=== PATIENT | male | born 1940 | race Caucasian/White ===

== ENCOUNTER 2016-12-22 13:49 | Inpatient (IN) | payer MEDICARE, BC ==
--- NOTE | ~2016-12-22 | CN ---
Consultation Report [facility] [address] [place]. [address] NAME: CHESTER ORDONEZ : 38 STATUS : ADM Violet PAT#: [id number] AGE: 76 ADM/REG DATE : 12/22/16 MR#: [id number] REPORT SERV DATE: 12/23/16 DICTATED BY: JESE MASSEY DATE: 12/22/16 REPORT STATUS : Draft TRANSCRIBED BY: DONNA DATE: 12/22/16 DATE OF CONSULTATION: REFERRING REASON: Chest pain and atrial fibrillation. HISTORY OF PRESENT ILLNESS: This is a pleasant 76-year-old white obese gentleman, well known to Dr. Luis Hernandez from [facility] with a history of paroxysmal atrial fibrillation, who is on chronic anticoagulation with Coumadin. He does not have a known coronary artery disease. Reportedly, he had a negative cardiac stress test 2 years ago. He had some chest pain and abdominal discomfort several years ago when he had a cholecystectomy, but no documented coronary artery disease. He is an ex-smoker with a personal history of diabetes, hypertension, and hyperlipidemia. He has, over the last several months, on and off episodes of falls and poor balance. While driving to [place] visiting his daughter, he developed acute dizziness but no headache. When he reached her house, he had episodes of chest pain and vomited 3 times. He developed a left arm pain which has been an on and of squeezing- type sensation in the left arm and also substernal epigastric pain. He also has some belching and a distended abdomen. He had a few episodes of lower extremity edema over the last couple of weeks ago and at the end of the day also. He has not had any similar chest pain over the last several years. His first cardiac enzymes are negative. He remains in rate-controlled atrial fibrillation. He is currently chest pain-free. He denies any headache or mental status changes. CT of the brain revealed some chronic small-vessel changes. He remains hemodynamically stable. Currently chest pain-free. REVIEW OF SYSTEMS: The rest of the review of systems is negative. PAST MEDICAL HISTORY: 1. Paroxysmal atrial fibrillation. 2. Chronic anticoagulation with Coumadin. 3. Hypertension. 4. Hyperlipidemia. 5. Diabetes mellitus. 6. Remote history of smoking. 7. Obesity. 8. Reported history of negative cardiac stress test 2 years ago. 9. History of preserved systolic function with EF of 55% in 2015. 10.Poor balance with history of falls. ALLERGIES: NO KNOWN DRUG ALLERGIES. SOCIAL HISTORY: The patient lives independently. He walks with a cane, occasionally will use a walker. He has poor balance. He quit smoking several years ago, smoked on and off entire life. Denies drinking alcohol or using street drugs. FAMILY HISTORY: Negative for sudden cardiac deaths or premature coronary artery in the Consultation Report [address] [place]. [address] NAME: CHESTER ORDONEZ : 38 STATUS : ADM Violet PAT#: [id number] AGE: 76 ADM/REG DATE : 12/22/16 MR#: [id number] REPORT SERV DATE: 12/23/16 DICTATED BY: JESE MASSEY DATE: 12/22/16 REPORT STATUS : Draft TRANSCRIBED BY: DONNA DATE: 12/22/16 family. HOME MEDICATIONS: Coreg 3.125 mg twice a day, Lasix 20 mg once a day, Neurontin 300 mg twice a day, hydrochlorothiazide 25 mg once a day, insulin, Cozaar 50 mg once a day, Flomax 0.4 mg once a day, and Coumadin 3.5 mg at bedtime. PHYSICAL EXAMINATION: GEN - No acute distress. Appears stated age. VITAL SIGNS: Blood pressure 142/62 and heart rate 62, irregularly irregular. HEENT - Pupils reactive to light and accommodation. Moist mucosa membrane. NECK: No JVD. Normal carotid upstroke. No carotid bruits. LUNGS: Decreased breath sounds, but no crackles. COR: Normal S1, S2. No S3 or S4. No significant rub or murmurs. ABD: Morbidly obese, distended. There is mild palpation tenderness in the epigastric area. EXT: Trace edema around the ankles with decreased pedal pulses bilaterally. SKIN: Warm with normal turgor. MS - No kyphosis. NEURO/PSY - Alert and oriented. Nonfocal. LABORATORY DATA: CBC within normal limits. INR 2.2, creatinine 1.8, BUN 33, and troponin x1 is negative. Chest x-ray, no acute pathology. CT of the chest as above. Electrocardiogram revealed atrial fibrillation at 53 beats per minute, no acute ST-T changes. ASSESSMENT AND PLAN: 1. Paroxysmal atrial fibrillation, currently atrial fibrillation which is rate controlled and asymptomatic on therapeutic anticoagulation. 2. Episodes of resting chest pain and left arm pain of unclear etiology. 3. Nausea and vomiting of unclear etiology. 4. Dizzy sensation of unclear etiology. The patient will have orthostatic blood pressure checked. At the present time, there is nothing suggesting acute coronary syndrome. He will closely follow cardiac enzymes. He will hold the Coreg and proceed with nuclear cardiac stress test in case that remains negative. Likely, he will require a neurology workup also. He remains hemodynamically stable now. He will have orthostatic blood pressure checked. We will also plan an echocardiogram to exclude any regional wall motion abnormalities tomorrow. The plan has been discussed with the patient and several family members. Consultation Report [address] [place]. [address] NAME: CHESTER ORODNEZ : 38 STATUS : ADM Violet PAT#: [id number] AGE: 76 ADM/REG DATE : 12/22/16 MR#: [id number] REPORT SERV DATE: 12/23/16 DICTATED BY: JESE MASSEY DATE: 12/22/16 REPORT STATUS : Draft TRANSCRIBED BY: DONNA DATE: 12/22/16 MARTÍN/DONNA Jese Massey M.D. / [id number] CC: Miguel Luna Jr, MD
--- NOTE | ~2016-12-22 | DS ---
Discharge Summary [facility] [address] [place]. [address] NAME: CHESTER ORDONEZ : 38 STATUS : DIS IN PAT#: [id number] AGE: 76 ADM/REG DATE : 12/23/16 MR#: [id number] REPORT SERV DATE: 12/30/16 DICTATED BY: JR. LUNA WILLIAM JOHN DATE: 12/29/16 REPORT STATUS : Draft TRANSCRIBED BY: DONNA DATE: 12/29/16 ADMISSION DATE: 12/23/2016 DISCHARGE DATE: 12/29/2016 DISCHARGE DIAGNOSES: 1. Normal pressure hydrocephalus with dizziness, gait instability, word apraxia, urinary urgency, and status post large volume lumbar puncture. 2. Chronic atrial fibrillation. 3. 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 OPERATIONS/PROCEDURES AND TREATMENTS: Include: 1. CT of the brain done 12/22/2016 which showed mild to moderate atrophy with ventriculomegaly. There was also moderate amount of periventricular deep white matter lucency consistent with distention changes and small vessel ischemic disease of chronic nature. 2. Chest x-ray done 12/22/2016 which showed no acute process. 3. Carotid flow study done 12/23/2016 showed left carotid category 1 stenosis, right vertebral was antegrade, left vertebral was antegrade. 4. MRI of the brain done 12/24/2016 showed moderate atrophy and chronic white matter ischemic change without acute infarct or hemorrhage. There was mild atherosclerotic irregularity of the proximal middle cerebral arteries bilaterally. The patient has extensive atherosclerotic irregularity of the middle cerebral arteries distal to the bifurcation bilaterally. There is focal stenosis at an estimated 70% to 90%. There was mild atherosclerotic change related to distal common carotid and proximal internal carotid arteries bilaterally without flow-limiting stenosis. The left vertebral arteries are patent and dominant. 5. Lumbar puncture done 12/28/2016 showed 28 mL CSF fluid removed with normal opening pressure. 6. Echocardiogram done 12/23/2016 showed normal ventricular systolic function with an ejection fraction of 60% with mild left ventricular hypertrophy. Normal right ventricular chamber size and function without significant regurgitation or stenosis. 7. Stress test done 12/23/2016 which showed no evidence of ischemia with ejection fraction of 60%. HOSPITAL COURSE: The patient is a 76-year-old white male who presented to [facility] on 12/22/2016, after awakening in the morning, drove from [facility] to see his son when he felt weak and dizzy. He was not driving very well. His blood sugar was somewhat elevated at 125. However, he still thought this could have been his blood sugar. He had cereal and milk and his blood sugar actually went up. He then began having chest pain with radiation to the left upper arm, lasting about two minutes. He came to the emergency room and was seen by Dr. Manzano. EKG was unremarkable. Physical exam showed blood pressure 140/90, heart rate 63, and respiratory rate 16. He was afebrile. Exam showed trace edema. Otherwise, unremarkable CT of the brain, detailed above. Cardiac enzymes are negative. EKG showed nonspecific changes. The patient was admitted to the Clinical Decision Unit. He was seen by Dr. Daley of [address] [id number] NAME: CHESTER ORDONEZ : 38 STATUS : DIS IN PAT#: [id number] AGE: 76 ADM/REG DATE : 12/23/16 MR#: [id number] REPORT SERV DATE: 12/30/16 DICTATED BY: JR. LUNA WILLIAM JOHN DATE: 12/29/16 REPORT STATUS : Draft TRANSCRIBED BY: DONNA DATE: 12/29/16 Cardiology, who recommended echocardiogram and stress test which are detailed above. The patient continued to complain of dizziness and weakness, was seen by Neurology. Given the patient's gait instability, word apraxia, and urinary voiding symptoms, he felt the patient could have normal-pressure hydrocephalus. He did have demonstration ventriculomegaly on imaging. He was therefore planned for large volume lumbar puncture. Unfortunately, the patient was on Coumadin, therefore, washout period was required. He finally had a lumbar puncture on 12/28/2016 and will be discharged home today on 12/29/2016 with Lovenox until INR is greater than 2. The remainder of the patient's health problems were unremarkable and not addressed. For discharge exam and laboratory, please see daily progress note. DISCHARGE DIET: ADA, 1.5 L fluid restriction. He is to weigh himself daily. ACTIVITY: As tolerated. FOLLOWUP: Followup will be on Wednesday or with his primary care provider, Nadege Dorantes, with an INR. The patient's Lovenox should be discontinued when INR is greater than , AND Dr. Javier Montero. FOLLOWUP ISSUES: 1. Follow up on normal pressure hydrocephalus. 2. Follow up INR on Wednesday or . Discontinuing Lovenox when INR is greater than 2. This discharge took 35 minutes for patient encounter, coordination of care, and documentation. WJF/MODL Miguel Luna Jr, MD / [id number] CC: Miguel Luna Jr, MD Chelsea Height Paul Boerema, MD
--- NOTE | ~2016-12-22 | CN ---
Consultation Report [facility] [address] [place]. [address] NAME: CHESTER ORDONEZ : 38 STATUS : ADM IN PAT#: [id number] AGE: 76 ADM/REG DATE : 12/23/16 MR#: [id number] REPORT SERV DATE: 12/23/16 DICTATED BY: ANYI JOSEPH DATE: 12/23/16 REPORT STATUS : Draft TRANSCRIBED BY: MODPreston DATE: 12/23/16 NEUROLOGY CONSULTATION DATE OF CONSULTATION: 12/23/2016 REASON FOR CONSULTATION: "Dizziness." HOSPITALIST: Miguel Luna Jr, M.D. ADVERTISING INSERTER: Miguel Hernandez M.D. HISTORY OF PRESENT ILLNESS: The patient is a 76-year-old male who has had an ongoing problem of imbalance. He states that he has had it for approximately six years. He has been to various doctors and has been unable to determine the etiology of his chronic imbalance. This last Wednesday, the patient was out, working in the yard, and he suddenly experienced lower back pain. He decided to go inside and rest a little while. He had no other associated symptoms. On Wednesday, the patient was at the gas station, pumping gas, he suddenly felt "dizzy" and got back in the car. When asked to specifically describe dizzy, he said he felt imbalanced and thought he might pass out. He denied any vertiginous symptoms. After the patient was in the car, he decided that he would drive to [place]. His stated that while he was driving, he kept veering to the left. He decided to drive to his son-in-law's house and once he parked the car, he could not get out of the car very easily nor did he walk in the house even using his cane. He was so imbalanced, it took three to four people to get him inside. Once he was inside, his blood sugar was checked and it was 320 mg/dL and his blood pressure was checked and the systolic reading was 160 to 170. He suddenly felt very nauseated and threw up. Eventually, the patient came to [facility]'s Emergency Department for further evaluation and treatment. When questioned extensively about the patient's "imbalance," the patient mentions that he does have peripheral neuropathy due to his diabetes. He also mentioned that he has short- term memory issues and word-finding problems. Over the last three years, he has had urinary incontinence and has had to wear, depends, 24 hours a day. PAST MEDICAL HISTORY: Incarcerated hernia, diabetes mellitus type 2, atrial fibrillation, BPH, hypertension, history of tobacco abuse, GERD, nephrolithiasis, biliary pancreatitis, chronic kidney disease stage III, hyperlipidemia, obesity, ataxia, and diabetic neuropathy. PAST SURGICAL HISTORY: Hernia repair, cholecystectomy, and appendectomy. HOME MEDICATION: Home medications list includes Coreg 3.125 mg twice a day, vitamin B12 1000 mcg daily, Lasix 20 mg daily, Neurontin 300 mg b.i.d., HCTZ 25 mg daily, Lantus 90 units Consultation Report [address] [place]. [address] NAME: CHESTER ORDONEZ : 38 STATUS : ADM IN PAT#: [id number] AGE: 76 ADM/REG DATE : 12/23/16 MR#: [id number] REPORT SERV DATE: 12/23/16 DICTATED BY: ANYI JOSEPH DATE: 12/23/16 REPORT STATUS : Draft TRANSCRIBED BY: DONNA DATE: 12/23/16 subcu at bedtime, Humalog 25 units subcu a.c., Tradjenta 5 mg daily, Cozaar 50 mg daily, multivitamin daily, Flomax 0.4 mg daily, Ultram 50 mg t.i.d., and Jantoven 3.5 mg daily. ALLERGIES: NONE. SOCIAL HISTORY: The patient is . This is his second marriage. He has two children by his first marriage. He is a remote smoker. He does not drink alcohol or use illicits. FAMILY HISTORY: The patient's mother at the age of 85 from Alzheimer's. His father from an [place]. He also had cancer. He has one brother who from lung cancer and two sisters who have chronic back pain and diabetes. REVIEW OF SYSTEMS: For pertinent positives, see HPI. PHYSICAL EXAMINATION: GENERAL: The patient is a 76-year-old male, who stands 5 feet 9 inches tall and weighs 238 pounds. VITAL SIGNS: He is afebrile. Heart rate 65, respiratory rate 20, O2 saturations on room air 94%, blood pressure 137/65. NEURO: The patient is alert. He is oriented x4. He is pleasant, communicates appropriately. Speech is clear. Language fluent. He does have slight anomia, but no dysarthria or aphasia. Pupils are 2 mm. PERRLA. Cranial nerves 2 through 12 are intact. Peripheral vision via confrontation is full in both maher. Rstyra-hi-nzom, no ataxia. Xonm-im-xpph, no ataxia. No pronator drift. No asterixis, myoclonus, dysmetria, or tremor. Upper extremity strength is 5/5 bilaterally. Upper DTRs 2+ bilaterally. No reported sensory deficits. Lower extremities strength is 4/5 bilaterally. Lower DTRs 1+ bilaterally. Downgoing toes. The patient has diminished sensation from the toes to the ankle on the right and from toes to mid calf on the left. He can get up and ambulate. His gait is slow, it is magnetic, wide-based, Romberg positive. LABORATORY DATA: CBC on 12/22/2016, is normal. BMP on 12/23/2016, shows a creatinine of 1.52 and blood sugar of 226. INR today is 2.3. Carotid duplex study, category 1 bilaterally. Echocardiogram, LVEF 60% with LVH and no thrombus. CT of the brain, mild atrophy with ventriculomegaly. No acute changes. MRI and MRA of the brain is pending. ASSESSMENT/PLAN: 1. Probable NPH (normal pressure hydrocephalus). The patient has the triad of symptoms which include ataxia, memory loss, and urinary incontinence. The patient will need to have a high volume LP. Currently, he is on Coumadin and his INR is 2.3. I will ask the hospitalist team to manage his anticoagulation and place him on a heparin drip prior to LP. 2. Peripheral neuropathy. The patient has moderate peripheral neuropathy, which could also affect his balance and cause some ataxia. Thank you again for including us in consultation. We will continue to follow with you. Consultation Report [address] [place] [place]. [address] NAME: CHESTER ORDONEZ : 38 STATUS : ADM IN [facility]#: [id number] AGE: 76 ADM/REG DATE : 12/23/16 MR#: [id number] REPORT SERV DATE: 12/23/16 DICTATED BY: ANYI JOSEPH DATE: 12/23/16 REPORT STATUS : Draft TRANSCRIBED BY: DONNA DATE: 12/23/16 GUERRERO/DONNA Anyi Joseph DNP, ACNP-BC / [id number] CC: Miguel Luna Jr, MD Paul Daniel Boerema William Warren, M.D.
--- NOTE | ~2016-12-22 | HP ---
History And Physical [place] [id number] [facility] [place]. [address] NAME: CHESTER ORDONEZ : 36 STATUS : ADM Violet PAT#: [id number] AGE: 76 ADM/REG DATE : 12/22/16 MR#: [id number] REPORT SERV DATE: 12/23/16 DICTATED BY: CHLOE WHITE DATE: 12/22/16 REPORT STATUS : Draft TRANSCRIBED BY: MODL DATE: 12/22/16 DATE OF ADMISSION: 12/22/2016 ATTENDING PHYSICIAN: Dr. Lnua. REASON FOR ADMISSION: Chest pain, left arm pain, and dizziness. EXAMINING PHYSICIAN: Dr. White. HISTORY: This is a 76-year-old white male, who got up this morning and drove from [facility] to [place] to see his son. He felt weak and dizzy this morning. He was not driving too straight as well. His blood sugar in fact on arising this morning was 125. He had cereal and milk and at his son's house. With the problem he is having, his blood sugar had gone up to 310. He also had began having a chest pain in the left upper arm that radiated into the chest. He has a tight feeling lasting 2 minutes at a time. It came and went. He came to the emergency room and was seen by Dr. Shine Lawrence. An EKG was obtained. It did show bradycardia with atrial fibrillation with a slow ventricular response. He has a longstanding history of atrial fibrillation and is followed by Dr. Miguel Hernandez. He has not had a cardiac catheterization or cardiac imaging in the last two years at least. We admitted the patient to observation to rule out SC to stage for cardiac intervention considering cardiac catheterization in the morning. His creatinine is slightly above baseline from 1.6 up to 1.8 today. PAST HISTORY: He was hospitalized with incarcerated hernia in the past. This was 08/15/2014. He was also found to have positive influenza A and pneumonia associated with that which took the bulk of the hospitalization. He has adult-onset diabetes mellitus. He has had some trouble getting it under control although his diet is fairly uncontrolled as well. He has had no cancer. His home medications are as follows: Yet to be fully identified. Review of the old history showed that the patient had been on amiodarone, carvedilol, Levemir, and Lasix in the past. His list of medicines without doses include the following: Losartan HCT 50/50 one p.o. daily; Humalog 25 units before each meal; Lantus 80 units subcu at bedtime; gabapentin 300 mg p.o. three times a day; tramadol 50 mg three times a day; Flomax 0.4 mg once a day; furosemide 20 mg p.o. b.i.d.; carvedilol 1 tablet twice a day, dosage unknown; Jantoven 3 mg p.o. once a day at bedtime; Tradjenta 5 mg once a day; vitamins once a day, B12, D3, and Centrum vitamins once daily. ALLERGIES: NONE ARE KNOWN. SOCIAL HISTORY: He is . Lives with . [place] in [place] farm in [address] [id number] NAME: CHESTER ORDONEZ : 36 STATUS : ADM Violet PAT#: [id number] AGE: 76 ADM/REG DATE : 12/22/16 MR#: [id number] REPORT SERV DATE: 12/23/16 DICTATED BY: CHLOE WHITE DATE: 12/22/16 REPORT STATUS : Draft TRANSCRIBED BY: DONNA DATE: 12/22/16 [place] up near the [facility] off [facility]. He smokes cigarettes for about 40 years but quit in the last decade. He does not take any alcohol. He attends the [employer] [facility] [employer] in [place] there. FAMILY HISTORY: He had a father who of cancer but also had a heart attack due to the cancer that he had and he had a brother who of cancer. There is a brother who had diabetes as well. There is obesity that runs in the family. REVIEW OF SYSTEMS: He had no headache. He did have some blurring of his vision and the dizziness but no fever, chills, night sweats, stiff neck, melena, hematemesis, fits, seizures, convulsions, unilateral weakness. He did have 2 vomiting episodes since he got here associated with the dizziness and the chest pain. He has had no melena, hematemesis, fits, seizures, or convulsions. His says he has been up tight recently about general anxiety. He said he wants to live a long time, but realizes he is in certainly failing health with the obesity and the diabetes as well. This brings on much anxiety. He has much family and friends around him and good support group. He has had some swelling of his lower extremities that is better today because he raised his feet up on a pillow last night he believes. His kidneys are failing some with creatinine rising from the 1.6 range on up to 1.8 which it is today. He is followed by Dr. Tai Hager in his office for chronic kidney disease. He has had 2+ pitting edema recently but none today and in fact it is better today. Remainder of the review of systems is negative. PHYSICAL EXAMINATION: VITAL SIGNS: His blood pressure now down to 140/90 with a heart rate of 63, respiratory rate 16, afebrile. HEENT: EOMI. Sclerae clear. Conjunctivae pink. Pharynx clear. NECK: No bruit without any JVD. CHEST: Clear to A and P. HEART: Irregularly irregular. Rate 63. ABDOMEN: Grossly obese. Protuberant. Nontender. Bowel sounds positive. No HSM. EXTREMITIES: He only has only trace edema around the ankles but the ankles are not prominent. His distal pulses are trace in the dorsalis pedis and posterior tibial. NEUROLOGICAL: He withdraws to plantar stimulation. [place] is symmetric bilaterally. Coordination intact. No tremor. His [id number] is intact. No dysmetria. No nystagmus. Strength is symmetric and equal. Sensory grossly intact. LYMPHATICS: There is little adenopathy. GENERAL: He is obese, affable. Hearing appears to be intact. LABORATORY DATA: CT scan of the brain does show some mild to moderate atrophy with ventriculomegaly. He has moderate amount of periventricular deep white matter disease suggestive of ischemia but no acute stroke or bleed is noted. His chest x-ray shows no acute cardiopulmonary event. His sodium is 135, potassium 4.8, creatinine 1.81 with a BUN of 33, glucose is 274 here. The albumin 3.4. Troponin less than 0.02. The EKG shows atrial fibrillation with a slow ventricular response and left axis deviation with low voltage in lead II and nonspecific ST and TU waves. History And Physical [address] [address] NAME: CHESTER ORDONEZ : 36 STATUS : ADM Violet PAT#: [id number] AGE: 76 ADM/REG DATE : 12/22/16 MR#: [id number] REPORT SERV DATE: 12/23/16 DICTATED BY: CHLOE WHITE DATE: 12/22/16 REPORT STATUS : Draft TRANSCRIBED BY: MODL DATE: 12/22/16 His hemoglobin was 13.8, hematocrit 41.0, MCV is 94, white count 5600, platelets 2000. His INR was 2.0. ASSESSMENT: 1. Acute dizziness now improved. Neurologic exam is not sustained, persistent neurologic deficits. We will hold on the MRI scan for now in favor of cardiac evaluation. 2. Coagulopathy because of atrial fibrillation. 3. Atrial fibrillation. 4. Chest pain, angina equivalent. The patient may never have had a cardiac catheterization, but Dr. Miguel Hernandez follows him. 5. Atrial fibrillation. 6. Bradycardia. 7. Chronic kidney disease stage 3. 8. Diabetes type 2. 9. Morbid obesity with questionable compliance. 10.History of ventral hernia repair on multiple occasions. PLAN: We will put the patient on observation. Draw serial troponins. Repeat the EKG in the morning. We will go ahead and consult Dr. Miguel Hernandez for possible cardiac catheterization as the patient does have a high probability of coronary artery disease. He does have bradycardia. We may need to decrease the dosage of the carvedilol for now because of this and we will check ultrasound of the carotids. LISA/DONNA Chloe White M.D. / [id number] CC: Miguel Luna Jr, MD William Warren, M.D.
[2016-12-22 12:17] LABS: BASOPHILS 0.8 %; BASOPHILS ABSOLUTE 0.05 10/3/uL (0.0-0.16); EOSINOPHILS ABSOLUTE 0.12 10/3/uL (0.0-0.53); ER CBC TAT 0 Hrs 05 Mins; HEMOGLOBIN 13.8 g/dL (13.6-17.8); IMMATURE GRANULOCYTES 0.2 %; IMMATURE GRANULOCYTES ABSOLUTE 0.01 10/3/uL (0.0-0.11); LYMPHOCYTES 35.4 %; MEAN CORPUS HGB CONC 33.7 g/dL (32.0-36.0); MEAN CORPUSCULAR HEMOGLOB 31.7 pg (26.0-34.0); MEAN PLATELET VOLUME 10.9 fL (9.2-13.0); MONOCYTES 12.5 %; MONOCYTES ABSOLUTE 0.74 10/3/uL (0.21-1.20); NEUTROPHILS 49.1 %; NEUTROPHILS ABSOLUTE 2.92 10/3/uL (2.02-8.40); RBC DISTRIBUTION WIDTH 14.2 % (12.0-16.0); RED CELL COUNT 4.36 10/6/uL (4.7-6.1); WHITE BLOOD CELLS 5.9 10/3/uL (4.5-10.5)
[2016-12-22 12:18] LABS: MANUAL DIFF NO %; PLATELET COUNT 200 10/3/uL (150-400)
[2016-12-22 12:25] LABS: INTERNATIONAL NORMAL RATI 2.2 UNITS (-); PARTIAL THROMBO TIME 37.2 SEC (22.5-37.2)
[2016-12-22 12:27] LABS: PROTIME (NOT ORD) 24.3 SEC (12.0-14.5)
[2016-12-22 12:35] LABS: ALBUMIN 3.4 G/DL (3.5-5.0); ALKALINE PHOSPHATASE 84 U/L (45-117); BUN (BLOOD UREA NITROGEN) 33 MG/DL (6-23); CALCIUM, SERUM 9.1 MG/DL (8.5-10.4); CHEST PAIN PROFILE TAT 0 Hrs 23 Mins; CHLORIDE, SERUM 99 MMOL/L (96-112); CO2 (CARBON DIOXIDE) 30 MMOL/L (24-34); CREATININE 1.81 MG/DL (0.70-1.30); DIRECT BILIRUBIN 0.2 MG/DL (0.0-0.4); GFR AFRICAN AMERICAN 41 ML/MIN (>=60); GFR NON AFRICAN AMERICAN 35 ML/MIN (>=60); GLUCOSE, SERUM 274 MG/DL (60-99); INDIRECT BILIRUBIN(NOT ORDER) 1.2 MG/DL (0.1-0.9); POTASSIUM, SERUM 4.8 MMOL/L (3.5-5.3); SGPT(ALT) 31 U/L (5-65); SODIUM, SERUM 135 MMOL/L (135-148); TOTAL BILIRUBIN 1.4 MG/DL (0-1.2); TOTAL PROTEIN 7.2 G/DL (6.0-8.5); TROPONIN I <0.02 NG/ML (<0.05)
[2016-12-22 12:36] LABS: SGOT(AST) 33 U/L (5-40)
[~2016-12-22 13:49] MED LIST: ASAB PO; B12250T PO; CENTRUM TAB1 TAB PO; COREG3 PO; FLOMAX4 PO; GLUCOPHAGE1000 MG PO; HUMALOG SC; HUMULIN SC; HYZAAR 50/12.51 TAB PO; JANTOVEN4 MG PO; KLOR-CON M2020 MEQ PO; L20 PO; LANTUS SC; LEVEMIR SC; LOP50 PO; NASACORTAQ NAS; NEUR300 PO; NOVOLOG SC; PACERONE200 MG PO; PRINZIDE1 TA1 PO; PROTONIX PO; TAMIFLU PO; TESSALON PERLE; TESSALON200 MG PO; TOPXL50 PO; ULTRAM50 PO; VITAMIN D PO; VITAMIN D1000 UNI1 PO; VOLT75 PO
[2016-12-22] MEDS ORDERED: HUMALOG SC (16:31)
[2016-12-22] MEDS ORDERED: LANTUS SC (16:32)
[2016-12-22] MEDS ORDERED: NEUR300 PO (16:33)
[2016-12-22] MEDS ORDERED: ULTRAM50 PO (16:35)
[2016-12-22] MEDS ORDERED: COZ50 PO (16:35)
[2016-12-22] MEDS ORDERED: HYDROCHLOROT25 MG PO (16:35)
[2016-12-22] MEDS ORDERED: L20 PO (16:36)
[2016-12-22] MEDS ORDERED: FLOMAX4 PO (16:36)
[2016-12-22] MEDS ORDERED: COREG3 PO (16:38)
[2016-12-22] MEDS ORDERED: JANTOVEN1 MG PO (16:38)
[2016-12-22] MEDS ORDERED: TRADJENTA5 MG PO (16:39)
[2016-12-22] MEDS ORDERED: MULTIVITAMI1 PO (16:39)
[2016-12-22] MEDS ORDERED: CYANO1000T PO (16:39)
[2016-12-23 04:14] LABS: INTERNATIONAL NORMAL RATI 2.3 UNITS (-); PROTIME (NOT ORD) 25.1 SEC (12.0-14.5)
[2016-12-23 04:21] LABS: BUN (BLOOD UREA NITROGEN) 27 MG/DL (6-23); CALCIUM, SERUM 8.8 MG/DL (8.5-10.4); CHLORIDE, SERUM 103 MMOL/L (96-112); CO2 (CARBON DIOXIDE) 28 MMOL/L (24-34); CREATININE 1.52 MG/DL (0.70-1.30); GFR AFRICAN AMERICAN 50 ML/MIN (>=60); GFR NON AFRICAN AMERICAN 43 ML/MIN (>=60); GLUCOSE, SERUM 226 MG/DL (60-99); POTASSIUM, SERUM 3.8 MMOL/L (3.5-5.3); SGOT(AST) 18 U/L (5-40); SGPT(ALT) 25 U/L (5-65); SODIUM, SERUM 138 MMOL/L (135-148); TROPONIN I <0.02 NG/ML (<0.05)
[2016-12-24 05:38] LABS: INTERNATIONAL NORMAL RATI 2.2 UNITS (-); PROTIME (NOT ORD) 24.2 SEC (12.0-14.5)
[2016-12-24 06:11] LABS: BUN (BLOOD UREA NITROGEN) 25 MG/DL (6-23); CALCIUM, SERUM 9.2 MG/DL (8.5-10.4); CHLORIDE, SERUM 107 MMOL/L (96-112); CHOLESTEROL 163 MG/DL (< 200); CO2 (CARBON DIOXIDE) 26 MMOL/L (24-34); CREATININE 1.39 MG/DL (0.70-1.30); GFR AFRICAN AMERICAN 56 ML/MIN (>=60); GFR NON AFRICAN AMERICAN 48 ML/MIN (>=60); POTASSIUM, SERUM 3.8 MMOL/L (3.5-5.3); SODIUM, SERUM 142 MMOL/L (135-148)
[2016-12-24 06:12] LABS: CHOL/HDL RATIO(NOT ORDER) 6.8 (0-5); FOLATE 19.4 NG/ML (>5.2); GLUCOSE, SERUM 69 MG/DL (60-99); HDL CHOLESTEROL 24 MG/DL (> 39); LDL CHOLESTEROL 89 MG/DL (< 130); NON-HDL CHOLESTEROL 139 MG/DL (< 160); TRIGLYCERIDE 254 MG/DL (< 150)
[2016-12-25 05:51] LABS: INTERNATIONAL NORMAL RATI 1.9 UNITS (-); PROTIME (NOT ORD) 21.9 SEC (12.0-14.5)
[2016-12-25 14:36] LABS: INTERNATIONAL NORMAL RATI 1.9 UNITS (-); PARTIAL THROMBO TIME 53.7 SEC (22.5-37.2); PROTIME (NOT ORD) 21.6 SEC (12.0-14.5)
[2016-12-26 05:14] LABS: INTERNATIONAL NORMAL RATI 1.9 UNITS (-); PROTIME (NOT ORD) 21.3 SEC (12.0-14.5)
[2016-12-27 03:46] LABS: INTERNATIONAL NORMAL RATI 1.6 UNITS (-); PROTIME (NOT ORD) 18.6 SEC (12.0-14.5)
[2016-12-28 04:57] LABS: INTERNATIONAL NORMAL RATI 1.4 UNITS (-)
[2016-12-28 04:58] LABS: BASOPHILS 0.4 %; BASOPHILS ABSOLUTE 0.04 10/3/uL (0.0-0.16); EOSINOPHILS 2.7 %; EOSINOPHILS ABSOLUTE 0.24 10/3/uL (0.0-0.53); HEMATOCRIT 39.5 % (40.0-51.0); HEMOGLOBIN 13.5 g/dL (13.6-17.8); IMMATURE GRANULOCYTES 0.4 %; IMMATURE GRANULOCYTES ABSOLUTE 0.04 10/3/uL (0.0-0.11); LYMPHOCYTES ABSOLUTE 3.06 10/3/uL (0.67-4.30); MANUAL DIFF NO %; MEAN CORPUS HGB CONC 34.2 g/dL (32.0-36.0); MEAN CORPUSCULAR HEMOGLOB 32.5 pg (26.0-34.0); MEAN PLATELET VOLUME 10.7 fL (9.2-13.0); MONOCYTES 11.4 %; MONOCYTES ABSOLUTE 1.03 10/3/uL (0.21-1.20); NEUTROPHILS 51.1 %; NEUTROPHILS ABSOLUTE 4.59 10/3/uL (2.02-8.40); PLATELET COUNT 177 10/3/uL (150-400); RBC DISTRIBUTION WIDTH 14.2 % (12.0-16.0); RED CELL COUNT 4.16 10/6/uL (4.7-6.1)
[2016-12-28 05:03] LABS: BUN (BLOOD UREA NITROGEN) 32 MG/DL (6-23); CALCIUM, SERUM 8.6 MG/DL (8.5-10.4); CHLORIDE, SERUM 106 MMOL/L (96-112); CO2 (CARBON DIOXIDE) 26 MMOL/L (24-34); CREATININE 1.55 MG/DL (0.70-1.30); GFR AFRICAN AMERICAN 49 ML/MIN (>=60); GFR NON AFRICAN AMERICAN 42 ML/MIN (>=60); GLUCOSE, SERUM 169 MG/DL (60-99); POTASSIUM, SERUM 4.4 MMOL/L (3.5-5.3); SODIUM, SERUM 138 MMOL/L (135-148)
[2016-12-28 14:44] LABS: TOTAL PROTEIN, CSF 59.8 MG/DL (15-45)
[2016-12-28 14:52] LABS: CSF BASO 0 % (NO REF RANGE); CSF EOS 0 % (0-1); CSF LYMPH (NOT ORD) 35 % (28-96); CSF MONO 64 % (16-56); CSF SEGS (NOT ORD) 1 % (0-7)
[2016-12-28 14:53] LABS: CSF APPEARANCE (NOT ORD) CLEAR (CLEAR); CSF COLOR (NOT ORD) COLORLESS (COLORLESS); CSF RBC (NOT ORD) 1 MM3 (NO REFERENCE); CSF WBC (NOT ORD) 2 /uL (0-10); CSF XANTHROCHROMIA NEG (NEG)
[2016-12-29 07:15] LABS: INTERNATIONAL NORMAL RATI 1.5 UNITS (-); PROTIME (NOT ORD) 17.8 SEC (12.0-14.5)
[2016-12-29 07:21] LABS: PARTIAL THROMBO TIME 113.7 SEC (22.5-37.2)
[2016-12-29] MEDS ORDERED: ASAB PO (14:04)
[2016-12-29] MEDS ORDERED: LOVENOX1C SC (14:11)
== END 2016-12-29 16:06 | disposition home or self-care (01) | DRG 57 ==
LOC: ER 13:49 → CDU1 16:52 → 5NO 12-25 17:12
PROVIDERS: Emergency Medicine; Internal Medicine; Internal Medicine Cardiovascular Disease; Nurse Practitioner
PROC: 009U3ZZ Drainage of Spinal Canal, Percutaneous Approach (ICD-10-PCS; principal; 2016-12-28)
DX: G91.2 (Idiopathic) normal pressure hydrocephalus (principal); E11.22 Type 2 diabetes mellitus with diabetic chronic kidney disease; I48.0 Paroxysmal atrial fibrillation; E11.42 Type 2 diabetes mellitus with diabetic polyneuropathy; R00.1 Bradycardia, unspecified; N18.3 Chronic kidney disease, stage 3 (moderate); G62.9 Polyneuropathy, unspecified; E11.65 Type 2 diabetes mellitus with hyperglycemia; E66.01 Morbid (severe) obesity due to excess calories; Z79.01 Long term (current) use of anticoagulants; Z90.49 Acquired absence of other specified parts of digestive tract; Z79.4 Long term (current) use of insulin; R39.15 Urgency of urination; N40.0 Benign prostatic hyperplasia without lower urinary tract symptoms; E78.5 Hyperlipidemia, unspecified; R41.3 Other amnesia; R27.0 Ataxia, unspecified
CPT/HCPCS: 62270; 70450; 70544; 70547; 70551; 71010; 77003; 78452; 80048; 80061; 80076; 82150; 82607; 82746; 82945; 82962; 83036; 83690; 83735; 84157; 84450; 84460; 84484; 85025; 85610; 85730; 89051; 93005; 93017; 93880; 97161-GP; 99285; A9270-GY; A9502; C8929; G8978-CH-GP; G8979-CH-GP; G8980-CH-GP; J0153; Q9957